=== PATIENT | male | born 2000 | race African-American/Black ===

== ENCOUNTER 2025-07-09 09:45 | Inpatient (IN) | payer MEDICAID, OTHER ==
[~2025-07-09] VITALS: Ht 193 cm; Wt 92.0 kg
[2025-07-09] MEDS ORDERED: IOHEXOL 350 MG/ML 100 ML VIAL ONE (10:14)
[2025-07-09] MEDS ORDERED: SODIUM CHLORIDE 0.9% 100 ML ONE (10:14)
[2025-07-09] MEDS: FAMOTIDINE 20 MG/2 ML VIAL IVP ONE (10:26)
[2025-07-09] MEDS: KETOROLAC TROMETHAMINE 30 MG/ML VIAL IVP ONE (10:26)
[2025-07-09 10:31] LABS: PLATELET COUNT (AUTO) 256 K/uL (150-450); RED BLOOD CELL COUNT(AUTO) 4.77 MIL/uL (4.50-5.90); RED CELL DISTRIBUTION WIDTH 14.0 % (11.5-14.5); WHITE BLOOD COUNT (AUTO) 7.4 K/uL (4.5-11.0)
[2025-07-09 10:35] LABS: CALCIUM, TOTAL 9.7 mg/dL (8.8-10.5); CREATININE 0.97 mg/dL (0.60-1.30); GLOMERULAR FILTR. RATE CALC > 60 mL/min (>60); GLUCOSE,RANDOM 91 mg/dL (70-110); SODIUM SERUM 138 mmol/L (136-145); UREA NITROGEN, BLOOD 15 mg/dL (7-18)
[2025-07-09 10:51] LABS: TOTAL PROTEIN, SERUM 7.8 g/dL (6.4-8.2)
[2025-07-09 10:53] LABS: ASPARTATE AMINOTRANSFERASE 1343.0 U/L (15-37)
[2025-07-09 11:54] LABS: CREATINE KINASE, TOTAL ONLY 54666.0 U/L (39-308)
[2025-07-09] MEDS ORDERED: ONDANSETRON HCL 4 MG/2 ML VIAL IVP PRN (13:00)
[2025-07-09] MEDS: SODIUM CHLORIDE 0.9% 1,000 ML IV ONE (13:01)
[2025-07-09] MEDS: SODIUM CHLORIDE 0.9% 1,000 ML IV SCH (13:59)
[2025-07-09 14:05] LABS: APPEARANCE,URINE CLEAR (CLEAR); GLUCOSE, URINE (UA) NEGATIVE (NEGATIVE); LEUKOCYTE ESTERASE ,URINE NEGATIVE (NEGATIVE); NITRATE,URINE NEGATIVE (NEGATIVE); OCCULT BLOOD,URINE NEGATIVE (NEGATIVE); SPECIFIC GRAVITIY, URINE 1.014 (1.003-1.030)
[2025-07-09 14:11] LABS: ALCOHOL, URINE DRUG SCREEN NEGATIVE (NEGATIVE); AMPHET/METH SCREEN,URINE NEGATIVE (NEGATIVE); BARBITURATE SCREEN, URINE NEGATIVE (NEGATIVE); CANNABINOID SCREEN,URINE NEGATIVE (NEGATIVE); COCAINE SCREEN,URINE NEGATIVE (NEGATIVE); METHADONE SCREEN, URINE NEGATIVE (NEGATIVE)
[2025-07-09 14:16] LABS: PH,URINE DRUG SCREEN 6.5 (5.0-8.0)
[2025-07-09 14:25] LABS: COVID AG,FIA SOURCE NASAL SWAB
[2025-07-09 14:44] LABS: SARS-COV2 (COVID) ANTIGEN,FIA Negative (Negative)
[2025-07-09 14:45] LABS: INFLUENZA TYPE A NEGATIVE FOR TYPE A (NEGATIVE); INFLUENZA TYPE B NEGATIVE FOR TYPE B (NEGATIVE)
[2025-07-09 15:30] VITALS: BP 132/85; PULSE 79; RESP 19; TEMP 97.7; O2SAT 100
[2025-07-09] MEDS: DOCUSATE SODIUM 100 MG CAPSULE PO SCH (19:50)
[2025-07-09 20:24] VITALS: BP 133/70; PULSE 85; RESP 18; TEMP 97.3; O2SAT 99
[2025-07-10 01:07] LABS: HEPATITIS B CORE IGM Negative (Negative); HEPATITIS C AB (EIA) Non Reactive (Non Reactive)
[2025-07-10 03:39] VITALS: BP 122/89; PULSE 79; RESP 18; TEMP 97.9; O2SAT 98
[2025-07-10 08:10] VITALS: BP 128/76; PULSE 78; RESP 18; TEMP 98.2; O2SAT 100
[2025-07-10] MEDS: PANTOPRAZOLE SODIUM 40 MG/VIAL IVP SCH (08:45)
[2025-07-10] MEDS: ALBUTEROL SULFATE HFA 90 MCG/PUFF 8 GM INHALER IH PRN (08:48)
[2025-07-10 11:58] LABS: ASPARTATE AMINOTRANSFERASE 678 U/L (15-37); CALCIUM, TOTAL 9.3 mg/dL (8.8-10.5); CREATININE 0.79 mg/dL (0.60-1.30); GLOMERULAR FILTR. RATE CALC > 60 mL/min (>60); GLUCOSE,RANDOM 80 mg/dL (70-110); SODIUM SERUM 139 mmol/L (136-145); TOTAL PROTEIN, SERUM 6.7 g/dL (6.4-8.2); UREA NITROGEN, BLOOD 8 mg/dL (7-18)
[2025-07-10 12:28] LABS: CREATINE KINASE, TOTAL ONLY 17925 U/L (39-308)
[2025-07-10 19:25] VITALS: BP 117/72; PULSE 85; RESP 18; TEMP 98.4; O2SAT 98
[2025-07-11 04:11] VITALS: BP 110/62; PULSE 70; RESP 17; TEMP 98.1; O2SAT 98
[2025-07-11 08:16] VITALS: BP 114/75; PULSE 79; RESP 20; TEMP 97.9; O2SAT 100
[2025-07-11 20:32] VITALS: BP 117/85; PULSE 87; RESP 18; TEMP 97.9; O2SAT 100
[2025-07-12 04:16] VITALS: BP 118/82; PULSE 83; RESP 18; TEMP 97.9; O2SAT 100
[2025-07-12 07:08] VITALS: BP 116/73; PULSE 81; RESP 18; TEMP 98.1; O2SAT 99
[2025-07-12 07:32] LABS: ASPARTATE AMINOTRANSFERASE 218 U/L (15-37); CALCIUM, TOTAL 9.2 mg/dL (8.8-10.5); CREATINE KINASE, TOTAL ONLY 4061 U/L (39-308); CREATININE 0.92 mg/dL (0.60-1.30); GLOMERULAR FILTR. RATE CALC > 60 mL/min (>60); GLUCOSE,RANDOM 80 mg/dL (70-110); SODIUM SERUM 142 mmol/L (136-145); TOTAL PROTEIN, SERUM 6.5 g/dL (6.4-8.2); UREA NITROGEN, BLOOD 11 mg/dL (7-18)
[2025-07-12 19:29] VITALS: BP 130/87; PULSE 94; RESP 18; TEMP 98.6; O2SAT 99
[2025-07-13 04:40] VITALS: BP 118/70; PULSE 73; RESP 18; TEMP 97.7; O2SAT 97
[2025-07-13 08:32] VITALS: BP 116/78; PULSE 82; RESP 18; TEMP 98.1; O2SAT 100
[2025-07-13 20:22] VITALS: BP 102/56; PULSE 83; RESP 18; TEMP 97.9; O2SAT 98
[2025-07-14 05:18] VITALS: BP 113/75; PULSE 78; RESP 18; TEMP 98.2; O2SAT 99
[2025-07-14 07:41] LABS: ASPARTATE AMINOTRANSFERASE 120 U/L (15-37); CALCIUM, TOTAL 9.1 mg/dL (8.8-10.5); CREATININE 0.77 mg/dL (0.60-1.30); GLOMERULAR FILTR. RATE CALC > 60 mL/min (>60); GLUCOSE,RANDOM 82 mg/dL (70-110); SODIUM SERUM 140 mmol/L (136-145); TOTAL PROTEIN, SERUM 6.9 g/dL (6.4-8.2); UREA NITROGEN, BLOOD 12 mg/dL (7-18)
[2025-07-14 07:47] LABS: CREATINE KINASE, TOTAL ONLY 1293 U/L (39-308)
[2025-07-14 08:00] VITALS: BP 130/81; PULSE 80; RESP 19; TEMP 98.1; O2SAT 99
== END 2025-07-14 20:21 | DRG 442 ==
LOC: EMS 09:45 → EDH 13:07 → 6N 15:05
PROVIDERS: ADMIT Internal Medicine; ATTEND Internal Medicine
DX: B17.9 Acute viral hepatitis, unspecified (principal); M62.82 Rhabdomyolysis; Z20.822 Contact with and (suspected) exposure to COVID-19
CPT/HCPCS: 74177; 76705; 80048; 80053; 80074; 80076; 80307; 81003; 82550; 83690; 85025; 85610; 85730; 87804; 96374; 96375; 99285; G0480; J1885; J2470; J3490; J3535; J7030; J7050